=== PATIENT | female | born 1945 | race Caucasian/White ===

== ENCOUNTER → 2017-07-06 | Outpatient (CLI) | payer MEDICARE, MEDICAID | LOC: GMAM 17:23 | PROVIDERS: ATTEND Family Medicine | DX: M81.0 Age-related osteoporosis without current pathological fracture (principal); R63.4 Abnormal weight loss ==

== ENCOUNTER → 2017-07-10 | Outpatient (CLI) | payer MEDICARE, MEDICAID ==
--- NOTE | 2017-07-11 12:49 | CT ---
EXAM DESCRIPTION: Chest w/o Contrast CLINICAL HISTORY: 72 years, Female, PULMONARY NODULE COMPARISON: None TECHNIQUE: Thin-section noncontrast axial CT images are obtained according to our protocol. Reconstructed MPR images are created and reviewed as well. FINDINGS: Lungs: No consolidating pulmonary infiltrate or groundglass infiltrate. No worrisome pulmonary mass or nodule. Calcified granuloma is in the left lower lobe subpleural region measuring 1 cm. This may be visible on chest x-ray. Another calcified granuloma in the subpleural right upper lobe posterior segment measures 5 mm. Severe emphysematous changes are present bilaterally. Subpleural fibrotic changes are noted with honeycomb fibrosis and usual interstitial pneumonitis pattern. This is usually idiopathic but can be associated with pneumoconioses or connective tissue diseases. No pleural plaques. Shoulder degenerative arthritic changes are mild. Mediastinum: Lymph nodes are normal in size. Normal vascular contours. Heart size is normal with no pericardial effusion. Chest wall/axilla: No mass or adenopathy. Breast tissue appears symmetrical. Lower neck/supraclavicular: No mass or adenopathy. Unremarkable thyroid gland. Upper abdomen: Unremarkable upper abdominal viscera. Coronal and sagittal reformatted images confirm the findings. IMPRESSION: Calcific granulomas in the right upper lobe and left lower lobe. Emphysematous hyperexpansion of lungs. Subpleural honeycomb fibrotic changes bilaterally. This exam was performed according to our departmental dose-optimization program, which includes automated exposure control, adjustment of the mA and/or kV according to patient size and/or use of iterative reconstruction technique. Total DLP equals 227.81 mGycm. Electronically signed by: Jonathan Kline MD 07/11/2017 12:47 PM CDT
--- NOTE | 2017-07-11 13:08 | CT ---
EXAM DESCRIPTION: CT ABDOMEN AND PELVIS WITHOUT AND WITH CONTRAST CLINICAL HISTORY: ABD PAIN COMPARISON: None Available. TECHNIQUE: CT of the abdomen and pelvis are performed prior to and during IV bolus administration of 100 mL of Isovue 300. Oral contrast media is administered as well. FINDINGS: See separate chest CT report. Liver is normal in size and parenchymal appearance on precontrast images. Gallbladder is unremarkable. Spleen, pancreas, and kidneys are negative for focal lesion. The aorta measures 2.9 cm in diameter. See recommendations below for imaging follow-up. Postcontrast images show normal enhancement of the liver, spleen and pancreas. Normal renal cortical enhancement. Normal contrast opacification of upper abdominal vessels. No enhancement of the gallbladder wall. There is no lymphadenopathy, inflammation, or free fluid observed. No bowel dilatation. CT PELVIS: Bladder appears thick walled. Correlate with urinalysis. No intraluminal bladder mass or stone. Distal ureters are normal. Bones appear osteopenic. Degenerative changes in the lower lumbar facets. No inflammation around the cecum or terminal ileum or sigmoid colon. Appendix is not seen and may be surgically absent. After IV contrast, no abnormal enhancement of the bladder wall is seen. There is positive opacification of the pelvic arteries. Coronal and sagittal reformatted images confirm the findings. Old compression fracture T12. Severe disc degeneration in the mid and lower L-spine. 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 IMPRESSION: 2.9 cm abdominal aortic aneurysm. See recommendation for follow-up below (Society for vascular surgery guidelines). AAA Size: Follow-up Recommendation (1): 2.6 - 2.9 cm Every 5 years (2) 3.0 - 3.4 cm Every 3 years 3.5 - 3.9 cm Every 12 months 4.0 - 4.4 cm Every 12 months, vasc consult rec 4.5 - 5.4 cm Every 6 months, vasc consult rec >=5.5 cm Referral to vascular surgeon recommended (1)Based upon the Society for Vascular Surgery Guidelines: J Vasc Surg. 2009 Dec;50(4 Suppl):S2-49 (2)For aortas of max fide of 2.6-2.9 cm that meet criteria for AAA (>= 1.5 x proximal normal segment) This exam was performed according to our departmental dose-optimization program, which includes automated exposure control, adjustment of the mA and/or kV according to patient size and/or use of iterative reconstruction technique. Total DLP = 901.87 mGycm. Electronically signed by: Jonathan Kline MD 07/11/2017 1:06 PM CDT
== END ==
LOC: CT 07:56
PROVIDERS: ATTEND Family Medicine
DX: R91.1 Solitary pulmonary nodule (principal); R10.84 Generalized abdominal pain; I71.4 Abdominal aortic aneurysm, without rupture

== ENCOUNTER → 2017-08-20 | Outpatient (CLI) | payer MEDICARE, MEDICAID | LOC: LAB.O 13:04 | PROVIDERS: ATTEND Internal Medicine | DX: M06.9 Rheumatoid arthritis, unspecified (principal) ==

== ENCOUNTER 2018-01-20 05:36 | Day surgery (SDC) | payer MEDICARE, MEDICAID ==
[2018-01-20] MEDS ORDERED: LACTATED RINGERS 1,000 ML ONE (05:56)
[2018-01-20] MEDS ORDERED: LACTATED RINGERS 1,000 ML BAG IV ONE (06:58)
[2018-01-20] MEDS ORDERED: LIDOCAINE 1% 10 ML VIAL INJ ONE (07:00)
[2018-01-20] MEDS ORDERED: PROPOFOL 200 MG/20 ML VIAL IV ONE (07:00)
[2018-01-20 07:09] VITALS: O2SAT 95
[2018-01-20 07:53] VITALS: BP 97/62; TEMP 96.1
--- NOTE | 2018-01-20 08:33 | OP ---
DATE OF PROCEDURE: 01/20/18 PREPROCEDURE DIAGNOSIS: 1. Unintentional weight loss. POSTPROCEDURE DIAGNOSIS: 1. Erythematous gastropathy. 2. Esophagitis, LA Grade B. 3. Moderate to severe diverticulosis. 4. Lateral spreading polyp at 30 cm. 5. Large internal hemorrhoids. PROCEDURE: 1. Esophagogastroduodenoscopy. 2. Colonoscopy. SURGEON: Stefan Rosa MD COMPLICATIONS: No immediate complications. SEDATION: The patient was sedated via IV propofol by the Anesthesia Department. CONSENT: Prior to the procedure, risks, benefits and alternatives to the therapy were discussed with the patient. The risks included bleeding, infection , perforation and . The patient agreed to the procedure and signed a consent. PREPROCEDURE ANESTHESIA ASSESSMENT: An examination revealed no contraindication to sedation. Airway examination demonstrated a Mallampati class type 2, ASA grade assessment type 2. Throughout the procedure, the patient's blood pressure and additional vital signs were monitored closely. EGD: The patient was placed in the left lateral decubitus position. Bite block was placed in the mouth between the teeth. The Olympus endoscope was introduced through the oropharynx, esophagus and stomach. The second portion of the duodenum was reached. The scope was retracted and the mucosa visualized. The entirety of the exam was performed under direct visualization. FINDINGS: 1. Mild to moderate esophagitis was seen at the GE junction, LA Grade B. Biopsied with cold forceps. 2. Erythematous gastropathy was seen diffusely in the gastric antrum, biopsied. Otherwise, the stomach was normal. 3. The entirety of the duodenum was normal. COLONOSCOPY: The patient was placed in the left lateral decubitus position and a rectal examination was performed. The rectal examination was within normal limits. The Olympus colonoscope was passed in the anus, rectum, traversing the colon to the level of the cecum as identified by the appendiceal orifice. The scope was retracted and the mucosa was visualized. The entirety of the exam was performed with direct visualization. Retroflexion was performed in the rectum. Preparation quality was good. The withdrawal time was greater than 6 minutes. The patient tolerated the procedure well. FINDINGS: 1. Moderate to severe diverticulosis was seen in the sigmoid and descending colon. 2. A medium sized, lateral spreading polyp was seen at 30 cm from the anal verge. The polyp was flat and measured 20 mm. Attempt with lifting with normal saline was appropriate, however, unable to safely resect given lack of rigid snare. 3. Large, non-bleeding internal hemorrhoids were seen in retroflexion. 4. Otherwise, the entirety of the colonic mucosa was unremarkable. RECOMMENDATIONS: 1. Return the patient home. 2. Resume previous diet. 3. Repeat colonoscopy at appointment to be scheduled for endoscopic mucosal resection of lateral spreading lesion. 4. Start omeprazole 40 mg p.o. daily for the following 8 weeks. 5. Followup pathology results. 6. Return to my office in the subsequent 2 weeks. 7. Findings were discussed with the patient. 8. Avoid NSAIDs. #[id number] [facility]
== END 2018-01-20 08:24 | disposition home or self-care (01) ==
LOC: AMB 05:36
PROVIDERS: ATTEND Internal Medicine Gastroenterology
DX: R63.4 Abnormal weight loss (principal); K63.5 Polyp of colon; K29.50 Unspecified chronic gastritis without bleeding; K20.9 Esophagitis, unspecified; K57.30 Diverticulosis of large intestine without perforation or abscess without bleeding; K64.8 Other hemorrhoids; I25.10 Atherosclerotic heart disease of native coronary artery without angina pectoris; E78.5 Hyperlipidemia, unspecified; J44.9 Chronic obstructive pulmonary disease, unspecified; Z79.82 Long term (current) use of aspirin; Z79.899 Other long term (current) drug therapy; Z87.891 Personal history of nicotine dependence
CPT/HCPCS: 00813; 43239; 45380; 88305; 88342; J3490; J7120

== ENCOUNTER 2018-08-24 17:49 | Inpatient (IN) | payer MEDICARE, MEDICAID ==
--- NOTE | 2018-08-24 17:50 | HP ---
SUPERVISING PHYSICIAN: Jeyson Alas M.D. CHIEF COMPLAINT: Worsening shortness of breath and cough. HISTORY OF PRESENT ILLNESS: Ms. Apodaca is a 73 year-old female patient that presented to Dr. Patterson's office today complaining of shortness of breath. She reports that she had been seen in the walk-in clinic in [place] over 3 weeks previously for a sore throat at which time she was treated with some Doxycycline and given a steroid shot. She then had a 2 week followup visit with Dr. Patterson and it was noted that she was not having any improvement. At that time, Dr. Patterson started her on a Z-Michael, gave her a steroid injection and a Medrol Dosepak. She reported back for followup today and was notably worse showing O2 saturations on room air at 87% in the clinic, and she is not O2 dependent. The patient also notes that she has had a weight loss over the last year of over almost 65 pounds and in the last week has lost a little over 5 pounds. She notes that her last bowel movement was 3 days previously and she does have issues with chronic constipation. Dr. Patterson requested that the patient now be admitted directly to the hospital for failure to respond to outpatient treatment measures for exacerbation of chronic obstructive pulmonary disease and worsening hypoxia. Ms. Parish is now going to be admitted for concerns for community acquired pneumonia secondary to exacerbation of COPD with hypoxia. She was admitted in stable condition. PAST MEDICAL HISTORY: 1. Rheumatoid arthritis. 2. Abdominal aortic aneurysm followed by Dr. Patterson. 3. Chronic obstructive pulmonary disease with emphysema. 4. Pulmonary fibrosis. 5. Pulmonary nodule on the right lung followed by Dr. Patterson. 6. Chronic constipation. 7. Large polyp in the colon on previous colonoscopy noted in February 2018 followed by GI specialty. PAST SURGICAL HISTORY: 1. Hysterectomy in 1980. 2. Total left knee in 2008. 3. Tonsillectomy and adenoidectomy as a child. 4. Bilateral cataracts. 5. Appendectomy. HOME MEDICATIONS: 1. Duloxetine 60 mg daily. 2. Aspirin 81 mg daily. 3. Zocor 20 mg at bedtime. 4. Methotrexate 2.5 mg daily. 5. [place] 7.5/325 one tablet b.i.d. p.r.n. 6. Folic acid 1 mg daily. 7. Aricept 15 mcg subcue weekly. ALLERGIES: PENICILLIN. FAMILY HISTORY: Father in his 50s secondary to complications from emphysema. Mom in the last 80s due to pancreatic cancer. She has 1 sister who has lung cancer and she has 1 sister that just recently passed at age 82 and had heart problems. SOCIAL HISTORY: Ms. Apodaca is and her currently is in a rehab facility, residential home in [place] status post [id number] amputation. She does have a lengthy history of smoking 1/2 pack to 3/4 pack a day for well over 40 years, but quit 2 years previously. She is a retired surgical nurse. She denies any illicit drug use. REVIEW OF SYSTEMS: CONSTITUTIONAL: Positive for general malaise, unintentional weight loss of well over 65 pounds in the last year and 5 within the last week. Negative for any reported fevers or chills. HEENT: Negative for ear aches, headaches, current recent sore throat, nasal congestion, neck pain. RESPIRATORY: As noted in History of Present Illness, worsening shortness of breath with a productive cough without significant improvement in the last 3 weeks with some acute worsening in the last 24 hours. CARDIOVASCULAR: Denies any chest pains, palpitations, syncopal episodes. GASTROINTESTINAL: Negative for any abdominal pains but positive for chronic constipation. Last bowel movement 3 days previously. Denies any diarrhea, nausea or vomiting. GENITOURINARY: Denies any dysuria, hematuria or polyuria. MUSCULOSKELETAL: Positive for diffuse joint pain secondary to RA with the patient on chronic immunotherapy medications. NEUROLOGIC: Denies any headaches, dizziness, syncopal episodes, ataxia, seizures. SKIN: No evidence of any lesions, rashes or moles. HEMATOLOGIC: Negative for any unexplained bleeding, uncontrolled bleeding, bruising. PHYSICAL EXAMINATION: VITAL SIGNS: In the clinic, she was showing temperature 96.4, pulse 74, blood pressure 106/67, saturations were 87% on room air improving to the low 90s with oxygen therapy. Weight 53.7 kg. GENERAL: The patient is resting comfortably. Appears to be in no acute distress. She does look tired and frail and is thin in appearance. HEENT: Tympanic membranes were clear bilaterally. Oropharynx was pink and moist without any lesions. NECK: Supple, non-tender. Full range of motion. No jugular venous distention. CHEST: Lung sounds were diminished throughout with some very faint inspiratory and expiratory wheezing and rhonchi heard which was more prominent in the upper apices. No rales. ABDOMEN: Soft, non-tender. Positive bowel sounds. EXTREMITIES: Without any clubbing, cyanosis or edema. There was notable arthritic deformities to the hands, chronic in nature. SKIN: Warm, pink and dry. LABORATORY: CBC shows white count 8,300, hemoglobin 14, hematocrit 41.0, platelet count 200,000. Differential shows to be currently without a left shift. Chemistries show normal electrolytes with BUN 17, creatinine 0.83. Lactic acid was 1.0, magnesium 2.0, calcium 8.6. Liver functions are all within normal limits. Urinalysis was pending. MICROBIOLOGY: Sputum culture is pending. Blood culture is pending. RADIOLOGY: Chest x-ray on admission to the floor, 2 view chest, per radiology interpretation shows emphysematous and fibrotic changes. No acute process noted within the lungs. ASSESSMENT: 1. Acute exacerbation of chronic obstructive pulmonary disease having failed to respond to outpatient treatment measures with the patient having multiple risk factors and co-morbidities including immunosuppressive therapy for treatment of rheumatoid arthritis. 2. Chronic obstructive pulmonary disease with pulmonary fibrosis contributing to exacerbation in #1. 3. Rheumatoid arthritis on multiple immunotherapy medications. 4. History of abdominal aortic aneurysm being followed by Dr. Patterson. 5. History of pulmonary nodule in the right lung followed by Dr. Patterson. 6. Chronic constipation, uncertain etiology. 7. Unexplained weight loss with the patient being followed by Dr. Patterson in the outpatient setting with the patient having a history of polyps noted in last colonoscopy, awaiting further procedures. PLAN: Ms. Apodaca is going to be admitted directly from the clinic for exacerbation of COPD. Given that she has significant lung fibrosis and a history of rheumatoid arthritis in which she is being treated with multiple immunomodulating medications, she certainly is at high risk for developing pneumonia, therefore will start her on antibiotics with Rocephin and azithromycin. I will also start her on some Solu-Medrol as she was having some wheezing and she has pulmonary fibrosis. Initially will do 80 mg loading dose. This will be followed-up with 40 every 6 hours for 3 doses and reevaluate anticipating transition to oral prednisone. Will resume her home medications once those have been updated and verified. Will follow culture results of sputum and blood cultures, and treat as needed. She does have home health currently which is [facility]. Will put her on DVT prophylaxis per protocol. She will have aggressive bronchial hygiene with q.i.d. DuoNeb treatments and chest percussive therapy. Will follow her labs as needed. Again will anticipate length of stay to be 2 to 3 days. Once she is able to transition to outpatient management, given her current circumstances with her just having a recent [id number] amputation and in a rehab facility in [place], I did discuss with the patient that given that she is weak we need to consider possibly admission to a similar situation. She has voiced that she would be willing to be admitted as an inpatient to the same facility as her is at in [place] for rehabilitation. I will get a social consultation with Kellee to further followup on the patient's needs. Until she can transition to outpatient management will continue to follow and treat as needed. #[id number] [facility]
[2018-08-24] MEDS ORDERED: ALBUTEROL SULFATE 2.5 MG/3 ML VIAL NEB PRN (17:57)
[2018-08-24] MEDS ORDERED: ACETAMINOPHEN 325 MG TAB PO PRN (17:57)
[2018-08-24] MEDS ORDERED: SODIUM CHLORIDE 0.9% (FLUSH) 10 ML SYG IV PRN (17:57)
[2018-08-24] MEDS ORDERED: ONDANSETRON INJ 4 MG/2 ML VIAL IV PRN (17:57)
[2018-08-24] MEDS ORDERED: IBUPROFEN 400 MG TAB PO PRN (17:57)
[2018-08-24] MEDS ORDERED: IV SET AND CAP CHANGE INJ INJ SCH (18:00)
[2018-08-24] MEDS ORDERED: SODIUM CHLORIDE 0.9% 1000ML 1,000 ML IVS ONE (18:14)
[2018-08-24] MEDS: IPRATROPIUM/ALBUTEROL 3 ML VIAL INH SCH ×2 (18:14→20:15)
--- NOTE | 2018-08-24 18:35 | RAD ---
EXAM:Chest,2 Views CLINICAL INDICATION: COPD COMPARISON: 09/03/2011 FINDINGS:Two views of the chest were obtained. The heart size is normal. The pulmonary vascularity is unremarkable. The lungs are somewhat hyperexpanded and emphysematous. Additionally, there is prominence of the fine interstitial markings in both lung bases. No focal infiltrates are seen. There is no pneumothorax or pleural effusion. The lungs are otherwise clear. IMPRESSION: Emphysematous and fibrotic changes. No acute process in the chest. Electronically signed by: Yong Wang MD 08/24/2018 6:33 PM CDT
[2018-08-24] MEDS ORDERED: methylPREDNISolone SODIUM SUC 125 MG/2 ML VIAL IV ONE (19:00)
[2018-08-24] MEDS: levoFLOXacin 750MG IV 750 MG in PREMIX BAG 1 BAG IVPB SCH (19:39)
[2018-08-24] MEDS: KCL 20MEQ/0.45% NS 1,000 ML IVS PRN (19:39)
[2018-08-24] MEDS: ENOXAPARIN SODIUM 40 MG/0.4 ML SYG SUBCU SCH (19:40)
[2018-08-24] MEDS ORDERED: HYDROcodone 7.5MG/APAP 325MG 1 EA TAB PO PRN (20:01)
[2018-08-24] MEDS: SIMVASTATIN 20 MG TAB PO SCH (20:31)
[2018-08-24] MEDS: SODIUM CHLORIDE 0.9% (FLUSH) 10 ML SYG IV SCH (20:38)
[2018-08-24] MEDS ORDERED: diphenhydrAMINE HCL 25 MG CAP PO ONE (21:08)
[2018-08-25] MEDS: methylPREDNISolone SODIUM SUC 40 MG/ML VIAL IV SCH ×3 (01:05→12:40)
--- NOTE | 2018-08-25 07:10 | RAD ---
EXAM: Two view chest. INDICATION: Pneumonia. COMPARISON: Chest x-ray: 08/24/2018. FINDINGS: The lungs again demonstrate chronic interstitial opacities with no focal consolidation. The lungs appear hyperexpanded. The heart is normal in size. There is no pneumothorax or pleural effusion. The bones are demineralized. IMPRESSION: No significant change compared to the prior exam Electronically signed by: Bill Fox MD 08/25/2018 7:07 AM CDT Workstation: [id number]
[2018-08-25] MEDS: IPRATROPIUM/ALBUTEROL 3 ML VIAL INH SCH (08:54)
[2018-08-25] MEDS ORDERED: ASPIRIN (ENTERIC COATED) 81 MG TAB PO ONE (08:57)
[2018-08-25] MEDS ORDERED: DULoxetine HCL 30 MG CAP PO ONE (08:57)
[2018-08-25] MEDS ORDERED: NON-FORMULARY MEDICATION 1 EA MIS (Duloxetine Hcl [Duloxetine Hcl] 60 MG) PO SCH (09:00)
[2018-08-25] MEDS: FOLIC ACID 1 MG TAB PO SCH (09:09)
[2018-08-25] MEDS: KCL 20MEQ/0.45% NS 1,000 ML IVS PRN (09:09)
[2018-08-25] MEDS: SODIUM CHLORIDE 0.9% (FLUSH) 10 ML SYG IV SCH ×2 (09:12→20:59)
[2018-08-25] MEDS: ASPIRIN (CHEWABLE) 81 MG TAB PO SCH (09:14)
[2018-08-25] MEDS: IPRATROPIUM/ALBUTEROL 3 ML VIAL NEB SCH ×3 (13:00→20:28)
--- NOTE | 2018-08-25 14:18 | PN ---
SUPERVISING PHYSICIAN: Jeyson Alas MD DATE: 08/25/18 SUBJECTIVE: The patient reports that her breathing is a little easier today. After getting steroids, she has had some notable improvement, however, she has not been able to sleep due to the steroids. She has not had any chest pains, palpitations, diarrhea. She does still have a little issue with constipation. Otherwise, no further complaints. OBJECTIVE: VITAL SIGNS: Temperature 98.4. Pulse 86. Blood pressure 103/60. Respiratory rate 16. Saturation 95% on room air. Weight 55.4 kg. GENERAL: The patient is resting just having eaten breakfast sitting in the bedside chair. She is in no acute distress and is alert. CHEST: Lung sounds have improved aeration today, but still diminished towards the bases with just a slight inspiratory wheeze continued bilaterally. HEART: Regular rate and rhythm. ABDOMEN: Soft, nontender. Positive bowel sounds. EXTREMITIES: No edema. NEUROLOGIC: Alert and oriented times three. LABORATORY: White count 3,700, hemoglobin 12, hematocrit 36.5, platelet count 158,000. Differential without a left shift. Chemistries show normal electrolytes. BUN 15, creatinine 0.86, calcium 8.3. Urinalysis last night was within normal limits. MICROBIOLOGY: Blood cultures pending. Sputum culture pending collection. RADIOLOGY: Chest x-ray this morning per radiologic interpretation shows no significant change compared to previous exam. ASSESSMENT: 1. Acute exacerbation of chronic obstructive pulmonary disease having failed to respond to outpatient treatment measures with the patient having multiple risk factors and co-morbidities including immunosuppressive therapy for treatment of rheumatoid arthritis,showing improvement with systemic corticosteroids. 2. Chronic obstructive pulmonary disease with pulmonary fibrosis contributing to exacerbation in #1, improving with corticosteroids and aggressive pulmonary hygiene. 3. Rheumatoid arthritis on multiple immunotherapy medications. 4. History of abdominal aortic aneurysm being followed by Dr. Patterson. 5. History of pulmonary nodule in the right lung followed by Dr. Patterson. 6. Chronic constipation, uncertain etiology. 7. Unexplained weight loss with the patient being followed by Dr. Patterson in the outpatient setting with the patient having a history of polyps noted in last colonoscopy, awaiting further procedures. PLAN: We will continue with current plan of care with Levaquin given that she does have high risk factors for immunocompromise due to her rheumatoid and rheumatoid medications although right now, it appears that her chronic obstructive pulmonary disease is an exacerbation without any signs of infection. We will continue with Solu-Medrol for continuation of 4 doses since admission and then transition to p.o. prednisone 40 mg in the morning. We will go ahead and do an ambulation study tomorrow with anticipation of probably discharging. She does have her discharging on Thursday from his rehab facility going home and she needs to be home to assist him. We will go ahead and saline lock her as she is taking adequate oral hydration. She remains on deep venous thrombosis prophylaxis. We will hold off on any repeat laboratory as it is fairly stable. We will anticipate hopefully discharging tomorrow on oral prednisone and continued antibiotics. Until then, we will continue to monitor and treat as needed. #[id number]; [facility][id number] [facility]
[2018-08-25] MEDS: levoFLOXacin 750MG IV 750 MG in PREMIX BAG 1 BAG IVPB SCH (18:05)
[2018-08-25] MEDS: ENOXAPARIN SODIUM 40 MG/0.4 ML SYG SUBCU SCH (19:22)
[2018-08-25] MEDS: TEMAZEPAM 15 MG CAP PO PRN (20:59)
[2018-08-25] MEDS: SIMVASTATIN 20 MG TAB PO SCH (20:59)
[2018-08-26] MEDS: IPRATROPIUM/ALBUTEROL 3 ML VIAL NEB SCH ×4 (07:25→20:18)
[2018-08-26] MEDS: FOLIC ACID 1 MG TAB PO SCH (08:55)
[2018-08-26] MEDS: DULoxetine HCL 30 MG CAP PO SCH (08:55)
[2018-08-26] MEDS: predniSONE 20 MG TAB PO SCH (08:55)
[2018-08-26] MEDS: SODIUM CHLORIDE 0.9% (FLUSH) 10 ML SYG IV SCH ×2 (08:55→20:42)
[2018-08-26] MEDS: ASPIRIN (CHEWABLE) 81 MG TAB PO SCH (08:55)
--- NOTE | 2018-08-26 13:22 | PN ---
SUPERVISING PHYSICIAN: Jeyson Alas MD DATE: 08/26/18 SUBJECTIVE: The patient today notes she is not feeling as well as she was yesterday. We did taper her steroids down to oral. She notes she is shaky and weak. Her breathing seems to be about the same, maybe a little improved, but the patient is worried about her strength. She has had no chest pains, palpitations or other complications. OBJECTIVE: VITAL SIGNS: Temperature 97.9. Pulse 70. Blood pressure 99/60. Respiratory rate 16. Saturation 95% on room air. Weight 56.4 kg. GENERAL: The patient is resting in bed comfortably, talking to friends. 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 CHEST: Lung sounds today are fairly clear, just diminished towards the bases. There is just a very faint wheeze heard in the upper apices once again. HEART: Regular rate and rhythm. ABDOMEN: Soft, nontender. Positive bowel sounds. EXTREMITIES: No edema. NEUROLOGIC: Alert and oriented times three. LABORATORY: No repeat laboratories studies or x-rays. ASSESSMENT: 1. Acute exacerbation of chronic obstructive pulmonary disease having failed to respond to outpatient treatment measures with the patient having multiple risk factors and co-morbidities including immunosuppressive therapy for treatment of rheumatoid arthritis, showing slow improvement with systemic corticosteroids. 2. Chronic obstructive pulmonary disease with pulmonary fibrosis contributing to exacerbation in #1, with the patient showing slow clinical progression with need for continued more aggressive management. 3. Rheumatoid arthritis on multiple immunotherapy medications. 4. History of abdominal aortic aneurysm being followed by Dr. Patterson. 5. History of pulmonary nodule in the right lung followed by Dr. Patterson. 6. Chronic constipation, uncertain etiology. 7. Unexplained weight loss with the patient being followed by Dr. Patterson in the outpatient setting with the patient having a history of polyps noted in last colonoscopy, awaiting further procedures. PLAN: I was hoping to actually send the patient home today, however, she seems to have had a little bit of a set back overnight. I am not sure if it is the steroids, going to p.o. She is not short of breath, but she certainly is a lot weaker than she was yesterday. We did discuss getting up and ambulating and working with physical therapy. She has been transitioned to oral prednisone 40 mg daily. She remains on DVT prophylaxis. She is saline locked and is taking adequate oral hydration. We will hopefully be able to discharge tomorrow. Until then, we will continue with current treatment plan. Until she can transition to outpatient management, we will continue to monitor and treat as needed. [id number] [facility]
[2018-08-26] MEDS: levoFLOXacin 750MG IV 750 MG in PREMIX BAG 1 BAG IVPB SCH (17:32)
[2018-08-26] MEDS: ENOXAPARIN SODIUM 40 MG/0.4 ML SYG SUBCU SCH (17:37)
[2018-08-26] MEDS: SIMVASTATIN 20 MG TAB PO SCH (20:43)
[2018-08-26] MEDS: TEMAZEPAM 15 MG CAP PO PRN (22:06)
[2018-08-27 06:13] VITALS: BP 94/56; TEMP 97.8
[2018-08-27] MEDS: SODIUM CHLORIDE 0.9% (FLUSH) 10 ML SYG IV SCH (09:28)
[2018-08-27] MEDS: predniSONE 20 MG TAB PO SCH (09:29)
[2018-08-27] MEDS: DULoxetine HCL 30 MG CAP PO SCH (09:29)
[2018-08-27] MEDS: ASPIRIN (CHEWABLE) 81 MG TAB PO SCH (09:29)
[2018-08-27] MEDS: FOLIC ACID 1 MG TAB PO SCH (09:29)
[2018-08-27] MEDS: IPRATROPIUM/ALBUTEROL 3 ML VIAL NEB SCH (09:58)
[2018-08-27 09:59] VITALS: O2SAT 98
--- NOTE | 2018-08-27 13:31 | DS ---
SUPERVISING PHYSICIAN: Jeyson Alas MD ADMISSION DIAGNOSIS: 1. Chronic obstructive pulmonary disease exacerbation, failed outpatient therapy. 2. Rheumatoid arthritis on immunosuppressant therapy. 3. History of abdominal aortic aneurysm. 4. History of pulmonary nodule. 5. Chronic constipation. 6. Unexplained weight loss. DISCHARGE DIAGNOSIS: 1. Chronic obstructive pulmonary disease exacerbation, failed outpatient therapy. 2. Rheumatoid arthritis on immunosuppressant therapy. 3. History of abdominal aortic aneurysm. 4. History of pulmonary nodule. 5. Chronic constipation. 6. Unexplained weight loss. HOSPITAL COURSE: Ms. Apodaca is a 73-year-old female who went to Dr. Patterson's office on the day of admission with shortness of breath. She was seen at a walk-in clinic 3 weeks previously in [place] for a sore throat and was treated with doxycycline and given a steroid shot. She saw Dr. Patterson for the followup appointment and was placed on a Z-Michael as well as a steroid injection and Medrol Dosepak. On her followup appointment, she had not improved and O2 saturations were in the 80s. For that reason, she was referred for admission. Initially, she was hypoxic, but with treatment with nebulizers and steroids as well as antibiotics, she improved. Over the course of the 3 days, her oxygenation issues resolved. She denies any significant shortness of breath. Today, she feels like she can go home. Therefore, I will send her home on titrating doses of prednisone as well as Levaquin. She has a followup appointment with Dr. Patterson on 09/01/18. This is reflected in her discharge paperwork. Her diet will not change. Activity is as tolerated. #[id number] [facility]
== END 2018-08-27 09:55 | disposition home health service (06) | DRG 191 ==
LOC: MS 17:49
PROVIDERS: ADMIT Nurse Practitioner Family; ATTEND Nurse Practitioner Family
DX: J43.9 Emphysema, unspecified (principal); Z68.1 Body mass index [BMI] 19.9 or less, adult; R63.4 Abnormal weight loss; R09.02 Hypoxemia; M06.9 Rheumatoid arthritis, unspecified; K59.09 Other constipation; I71.4 Abdominal aortic aneurysm, without rupture; R91.8 Other nonspecific abnormal finding of lung field; J84.10 Pulmonary fibrosis, unspecified; Z96.652 Presence of left artificial knee joint; Z79.82 Long term (current) use of aspirin; Z79.891 Long term (current) use of opiate analgesic; Z79.899 Other long term (current) drug therapy; Z88.0 Allergy status to penicillin; Z87.891 Personal history of nicotine dependence; Z80.1 Family history of malignant neoplasm of trachea, bronchus and lung; Z80.0 Family history of malignant neoplasm of digestive organs

== ENCOUNTER → 2018-09-03 | Outpatient (CLI) | payer MEDICARE, MEDICAID ==
--- NOTE | 2018-09-06 09:19 | CT ---
EXAM DESCRIPTION: Abdoment/Pelvis w/o Contrast (accession [id number]), Chest w/o Contrast (accession [id number]) CLINICAL HISTORY: 73 years Female, ABDOMINAL AORTIC ANEURSM COMPARISON: CT chest, abdomen, and pelvis 07/10/2017. TECHNIQUE: CT images through the chest, abdomen, and pelvis without IV contrast. Multiplanar reformations were provided. This exam was performed according to our departmental dose-optimization program, which includes automated exposure control, adjustment of the mA and/or kV according to patient size and/or use of iterative reconstruction technique. CT CHEST FINDINGS: Heart and mediastinum: Heart is normal size. No pericardial effusion. Esophagus is unremarkable. Moderate calcified atherosclerosis. Moderate calcification in the left anterior descending coronary artery. No mediastinal lymphadenopathy. Evaluation for hilar lymphadenopathy limited without intravenous contrast but no perihilar fullness is appreciated. Thyroid Gland: Normal appearance of the thyroid gland. Lungs: Emphysematous changes bilaterally. Unchanged calcified granulomas. Airways: No filling defects or bronchiectasis. Pleura: No effusion or pneumothorax. Musculoskeletal and Soft Tissues: No acute fracture. No aggressive appearing osseous lesion. Soft tissues unremarkable with no axillary lymphadenopathy. CT ABDOMEN FINDINGS: Liver: Normal. Gallbladder and biliary: Normal. Pancreas: Normal. Spleen: Normal. Kidneys and adrenal glands: Normal. GI tract: The stomach and small bowel are normal. Peritoneal cavity: No ascites or free air. Retroperitoneum and lymph nodes: Normal. Vascular: Severe calcified atherosclerosis. Unchanged 2.9 x 2.5 cm aneurysmal dilatation of the infrarenal abdominal aorta. Unable to evaluate for hemorrhage or dissection limited without intravenous contrast. Musculoskeletal and soft tissues: No acute fracture or aggressive appearing osseous lesion. Soft tissues are unremarkable. CT PELVIS FINDINGS: GI tract: There is moderate Appendix is not definitively identified, although no pericecal inflammation or edema is present to suggest acute appendicitis at its expected location. Moderate stool throughout the colon. Urinary bladder: Moderately distended Uterus and adnexa: Uterus is absent. IMPRESSION: 1. No acute abnormality of the chest, abdomen or pelvis. 2. No suspicious pulmonary nodule. 3. Unchanged 2.9 cm infrarenal abdominal aortic aneurysm. AAA Size: Follow-up Recommendation : 2.6-2.9 cm Every 5 years 3.0-3.4 cm Every 3 years 3.5-3.9 cm Every 1 year 4.0-4.4 cm Every 1 year, vascular consultation recommended 4.5-5.4 cm Every 6 months, vascular consultation recommended >5.5 cm Vascular surgery consultation recommended 1. J Vasc Surg. 2009 Dec;50(4 Suppl):S2-49 2. For aortas with maximum diameter of 2.6-2.9 cm meeting the criteria for AAA (>50% of proximal normal segment) Electronically signed by: Josue Dominguez MD 09/06/2018 9:16 AM CDT
== END ==
LOC: CT 08:30
PROVIDERS: ATTEND Family Medicine
DX: I71.4 Abdominal aortic aneurysm, without rupture (principal); R91.1 Solitary pulmonary nodule

== ENCOUNTER → 2018-09-20 | Outpatient (CLI) | payer MEDICARE, MEDICAID | LOC: BFHH 14:15 | PROVIDERS: ATTEND Family Medicine | DX: N39.0 Urinary tract infection, site not specified (principal) ==

== ENCOUNTER → 2018-12-14 | Outpatient (CLI) | payer MEDICARE, MEDICAID ==
--- NOTE | 2018-12-15 14:21 | MRI ---
EXAM DESCRIPTION: Lumbar Spine w/o Contrast : Magnetic Resonance Imaging. CLINICAL HISTORY: SPINAL STENOSIS LUMBAR REGION WITH NEUROGENIC CLAUDICATION COMPARISON: Abdominal pelvic CT scan August 2018. TECHNIQUE: Multiplanar, multiple standard sequences, non contrast MRI, lumbar spine. FINDINGS: L5-S1: The disc is well visualized on axial T2 series 501, image 3. Disc desiccation and moderate disc space loss. Prior partial right laminectomy. Right posterior ligament partially removed. Hypertrophic arthrosis left facet and ligament thickening. Grade 1 retrolisthesis 2 mm. Posterior midline bulge with hyperintense T2 weighted annular fissure in the bulging disc. AP canal diameter 11 mm. Moderate right foraminal narrowing with bulging disc and spur abutting the right L5 nerve. Moderate narrowing left foramen. L4-L5: Disc desiccation and moderate to severe disc space loss. Partial left laminectomy and left facetectomy at L5. AP canal diameter 11 mm. Disc osteophyte encroachment on the bilateral foramina with moderate narrowing, more on the left. Mild right hypertrophic facet arthrosis and ligament thickening. Mild narrowing of the left subarticular recess. L3-L4: Diffuse moderate disc space loss and endplate reactive changes relatively symmetric. Anterior bulge and endplate ridging. Posterior broad-based disc osteophyte bulge into the canal with 3 mm grade 1 retrolisthesis. Partial right laminectomy and facetectomy. Minimal soft tissue edema posterior to the partially resected facet. Spur encroaching on the left subarticular recess which is stenotic with compromised descending left L4 nerve. Left paracentral 5 mm AP canal diameter. Moderate narrowing bilateral foramina. L2-L3: Disc desiccation with disc space maintained. Tiny posterior midline bulge. Bilateral moderate facet hypertrophic arthrosis and ligament thickening. AP canal diameter 9 mm. Right foramen is patent. Moderate narrowing of the left foramen. L1-L2: Disc space maintained with disc desiccation no significant bulging. Moderate hypertrophic facet arthrosis and ligament thickening bilaterally. AP canal diameter 11 mm. Moderate right foraminal narrowing and minimal left foraminal stenosis. Conus terminates just above the disc space. T12-L1: Minimal depression of the superior T12 endplate with minimal marrow edema. Retropulsion 3 mm. Abutting the cord. Elevation of the inferior T12 endplate but no marrow edema. Bilateral hypertrophic facet arthrosis and thickening of the ligaments more right than left. Edema also in the inferior and superior facets of the left joint. No significant disc bulging. AP canal diameter 10 mm. Right neural foraminal stenosis and mild narrowing left foramen. Mild upper lumbar dextroscoliosis. Paravertebral soft tissues unremarkable. Distal cord normal signal and caliber. Otherwise normal marrow signal in the remaining vertebral bodies and the posterior elements. Vertebral bodies are not compressed at any level. IMPRESSION: 1. Multiple levels of postoperative changes, multiple levels of decreased disc space and disc desiccation with spondylosis, multiple levels of hypertrophic facet arthrosis and thickened posterior ligaments. 2. Recent mild compression of the superior L1 endplate. Edema in the inferior superior facets of the left T12-L1 joint which could be related to trauma or arthrosis. Multifactorial borderline mild central canal stenosis. Right neural foraminal stenosis. 3. Annular fissure in the posterior midline L5-S1 disc bulge. Moderate canal narrowing. Previous partial right laminectomy. 4. Moderate to severe disc space loss and disc desiccation at L4-L5. Partial left laminectomy and left facetectomy. Moderate canal narrowing. Moderate foraminal narrowing. 5. Minimal posterior L2-L3 disc bulge, hypertrophic bilateral facets and ligaments, and multifactorial mild central canal stenosis. 6. Posterior broad-based L3-L4 disc osteophyte bulge and retrolisthesis. Partial right laminectomy and facetectomy with edema posterior to the partially resected facet. Large hypertrophic spur from the left facet encroaching on the canal with left paracentral severe canal stenosis and left subarticular recess stenosis with compromise descending left L4 nerve. Electronically signed by: Joshua Villagomez MD 12/15/2018 2:20 PM CDT
== END ==
LOC: MRI 10:00
PROVIDERS: ATTEND Family Medicine
DX: M48.062 Spinal stenosis, lumbar region with neurogenic claudication (principal); M51.36 Other intervertebral disc degeneration, lumbar region; M47.896 Other spondylosis, lumbar region; M51.86 Other intervertebral disc disorders, lumbar region; M25.78 Osteophyte, vertebrae; Z98.890 Other specified postprocedural states

== ENCOUNTER → 2018-12-17 | Outpatient (CLI) | payer MEDICARE, MEDICAID ==
--- NOTE | 2018-12-20 08:42 | MRI ---
EXAM DESCRIPTION: Thoracic Spine w/o Contrast: Magnetic Resonance Imaging. CLINICAL HISTORY: pain in thoracic spine. Mid back pain that radiates to the left side. COMPARISON: Thoracic spine radiographs 12/09/2018. CTA chest 12/18/2018. MRI scan lumbar spine 12/14/2018 TECHNIQUE: Multiplanar, multiple standard sequences, non contrast MRI, thoracic spine. FINDINGS: Multiple levels of disc desiccation and disc space loss and spondylosis. Anterior disc space loss at T4-T5 with posterior left paracentral disc protrusion impressing on the cord with mild bilateral foraminal narrowing. Near left paracentral canal stenosis. T8-T9 disc desiccation with disc space loss and left side endplate reactive changes. Bulge of the disc posteriorly is abutting the exiting left T8 nerve. Moderate canal and moderate left foraminal narrowing. Right foramen patent. Bilateral hypertrophic facets T9-10, T10-11, and T11-12 with bilateral foraminal stenosis. Disc desiccation and posterior disc bulge at these levels with canal nearly stenotic. Marrow edema in the right T11 pedicle, hyperintense on T2 and inversion recovery sequences, most likely stress injury. Superior elevation of the inferior T12 endplate which may represent a prior compression injury. No marrow edema in the T12 vertebral body or pedicles. Expansion of the T12-L1 disc. Depression of the L1 superior endplate with minimal marrow edema in the endplate but not involving the pedicles. 4 mm retropulsion of the endplate abutting the cord. This was also seen on the recent MRI scan of the lumbar spine. Right T12-L1 foraminal stenosis Disc desiccation T6-T7 and T7-T8 with minimal posterior bulge. Moderate canal narrowing at these levels. Minimal narrowing of the left foramina. Anterior endplate ankylosis from T4 to T9. Upper level discs with normal signal. Disc spaces are preserved. Canal and foramina are patent. No scoliosis. Facet joints are unremarkable. Conus terminates at L1. Cord with normal signal, no compression. Paravertebral soft tissues are unremarkable. Normal marrow signal in the remaining vertebral bodies and the posterior elements. No acute thoracic vertebral bodies compression at any level. IMPRESSION: 1. Left posterior paracentral protrusion T4-T5 causing near stenosis. Possible compromise left T4 nerve root. Left posterior T8-T9 disc bulge with spondylosis, abutting the exiting left T8 nerve root. 2. Bilateral hypertrophic facets T9-10, T10-11, and T11-12 with bilateral foraminal stenosis. Significant canal narrowing. Marrow edema in the right T11 pedicle may be due to stress injury with no fracture line seen. 3. Compression of the superior L1 endplate as well seen on prior MRI scan. Right T12-L1 foraminal stenosis. Old compression injury with elevation of, but no marrow edema in the inferior T12 endplate. 4. Disc desiccation T6-T7 and T7-T8 with minimal posterior bulge Electronically signed by: Joshua Villagomez MD 12/20/2018 8:41 AM CDT
== END ==
LOC: MRI 10:00
PROVIDERS: ATTEND Family Medicine
DX: M51.24 Other intervertebral disc displacement, thoracic region (principal); M47.894 Other spondylosis, thoracic region; M51.34 Other intervertebral disc degeneration, thoracic region; M48.04 Spinal stenosis, thoracic region; M48.05 Spinal stenosis, thoracolumbar region; M48.062 Spinal stenosis, lumbar region with neurogenic claudication

== ENCOUNTER 2018-12-18 16:09 | Emergency (ER) | payer MEDICARE, MEDICAID ==
[2018-12-18] MEDS ORDERED: ONDANSETRON INJ 4 MG/2 ML VIAL IV ONE (16:14)
[2018-12-18] MEDS ORDERED: ASPIRIN TABLET 325 MG TAB PO ONE (16:14)
[2018-12-18] MEDS ORDERED: NITROGLYCERIN 0.4 MG 25 EA TAB SL ONE (16:14)
[2018-12-18] MEDS ORDERED: SODIUM CHLORIDE 0.9% (FLUSH) 10 ML SYG IV PRN (16:14)
--- NOTE | 2018-12-18 16:35 | ED.PDOC ---
History of Present Illness - General Chief Complaint: Chest Pain/AL Stated Complaint: Chest pain Time Seen by Provider: 12/18/18 16:14 Source: patient, RN notes reviewed, Vital Signs reviewed, EMS notes reviewed, RN/MD Additional Information: Pt is a 73 yo F with Hx of smoking and COPD coming in with constant substernal chest pain radiating to her back since early this morning. Pain has been constant. She states that the pain worsens when she takes a deep breath. She denies cough but does endorse upper respiratory congestion. She denies any recent leg swelling or leg pain. She deneis any nausea, vomiting, diaphoresis or SOB. She denies any recent sick contacts. Patient denies leg swelling or leg pain. She denies recent travel, recent surgeries, hemoptysis, or hx of cancer. - History of Present Illness Timing/Duration: 7-24 hours Severity/Quality: moderate Location: substernal Chest Pain Radiation: back Activities at Onset: rest Improving Factors: nothing Worsening Factors: other - Deep breath Allergies/Adverse Reactions: Allergies Penicillins Allergy (Severe, Verified 08/24/18 18:05) Hives Home Medications: Ambulatory Orders RX: Aspirin [Aspirin Adult Low Dose] 81 mg PO DAILY 01/19/18 RX: Methotrexate Sodium [Methotrexate] 2.5 mg PO DAILY 01/19/18 Mirabegron [Myrbetriq] 25 mg PO DAILY 12/18/18 predniSONE [PredniSONE] 10 mg PO DAILY 12/18/18 Review of Systems - Review of Systems Constitutional: Denies: chills, fever EENTM: States: nose congestion. Denies: blurred vision Respiratory: Denies: cough, short of breath Cardiology: States: chest pain. Denies: edema, palpitations Gastrointestinal/Abdominal: Denies: abdominal pain, nausea, vomiting Musculoskeletal: Denies: back pain Past Medical History (General) - Patient Medical History Hx Seizures: No Hx Stroke: No Hx Asthma: No Hx of COPD: Yes Hx Congestive Heart Failure: No Hx Pacemaker: No Hx Hypertension: No Hx Diabetes: No Hx MRSA: No - Social History Hx Alcohol Use: No Hx Substance Use: No Hx Physical Abuse: No Hx Emotional Abuse: No Family Medical History - Family History Mother Family History: Unknown Physical Exam - Physical Exam General Appearance: Alert, Comfortable, No apparent distress, Well Developed, Well Groomed, Well Hydrated, Well Nourished Neck: full range of motion, supple, normal inspection Respiratory: chest non-tender, lungs clear, normal breath sounds, no respiratory distress, no accessory muscle use Cardiovascular/Chest: regular rate, rhythm, no edema, no gallop, no JVD, no murmur Peripheral Pulses: radial,right: 2+, radial,left: 2+, dorsalis pedis,right: 2+, dorsalis pedis,left: 2+, posterior tibialis,right: 2+, posterior tibialis,left: 2+ Gastrointestinal/Abdominal: normal bowel sounds, non tender, soft Extremity: no pedal edema, no calf tenderness Progress - Progress Progress: DDx: ACS, PE, Pneumonia, Pleurisy, Aortic Dissection, Esophageal Rupture, Mediastinitis, COPD Exacerbation, Muscle strain, GERD 12/18/18 16:30 Patient evaluated. Orders placed. EKG not significant for ischemic changes. 12/18/18 18:44 Patient feeling better. Discussed CTA findings. Will discharge home as pain has been constant and negative troponin without EKG changes. 12/18/18 21:37 Patient presented for evaluation of chest pain. EKG was not significant for underlying ischemic changes and troponin was found to be negative. Her pain had been constant greater than 6 hours, therefore I would expect a rise in troponin, CK-MB or ischemic changes on EKG. CXR was not significant for focal pneumonia. CMP was not significant for hepatic or biliary derangement. CBC was not significant for anemia or leukcoytosis. Given her chest pain, CTA chest was obtained. This was not significant for a focal pneumonia. She was updated on findings of CTA of chest. Patient denied any complaints and wanted to return home. Patient will be discharged home with plans for outpatient follow-up. - Results/Orders Results/Orders: CTA Chest: FINDINGS: There is no evidence of pulmonary embolism. There are no findings to suggest aortic dissection. There are no enlarged mediastinal or hilar lymph nodes. The visualized portions of the upper abdominal structures are unremarkable. There is mild dependent subsegmental atelectasis in both lung bases. Moderate emphysematous changes are noted in the lungs as well as mild to moderate fibrotic changes. There is a large calcified granuloma in the left lowe r lobe. The lungs are otherwise clear. There is no pneumothorax. IMPRESSION: No evidence of pulmonary embolism. CXR: KRISTA 12/18/18 16:14 IV Care:Saline Lock per Protoc QSHIFT Telemetry .ONCE Sodium Chloride 0.9% (Flush) [Saline Flush Syringe] 10 ml IV PRN PRN EKG Stat Pulse Ox Stat Laboratory Results - last 24 hr 12/18/18 16:33 WBC 7.8 RBC 4.02 L Hgb 13.2 Hct 39.8 MCV 99.1 H MCH 32.8 H MCHC 33.1 RDW 17.3 H Plt Count 194 MPV 8.0 Absolute Neuts (auto) 5.90 Absolute Lymphs (auto) 1.50 Absolute Monos (auto) 0.30 Absolute Eos (auto) 0.00 Absolute Basos (auto) 0.00 Neutrophils % 75.5 Lymphocytes % 19.2 L Monocytes % 4.4 Eosinophils % 0.5 L Basophils % 0.4 PT 9.3 INR 0.93 PTT (SP) 23.2 Sodium 138 Potassium 4.3 Chloride 103 Carbon Dioxide 25 Anion Gap 14.3 BUN 13 Creatinine 0.68 BUN/Creatinine Ratio 19.1 Random Glucose 86 Serum Osmolality 275.1 Calcium 8.7 Magnesium 2.2 Creatine Kinase 18 L CK-MB (CK-2) 0.5 CK-MB (CK-2) % Not Reportable Troponin I < 0.02 B-Natriuretic Peptide 160.0 H CTA Chest: No acute pulmonary embolus CXR: No focal infiltrate - EKG/XRAY/CT EKG: Sinus, no ST T wave changes Departure - Departure Clinical Impression: Chest pain Qualifiers: Chest pain type: chest pain on breathing Qualified Code(s): R07.1 - Chest pain on breathing Disposition: Discharge to Home or Self Care Condition: Good Departure Forms: ED Discharge - Pt. Copy, Patient Portal Self Enrollment Instructions: DI for Chest Pain Diet: resume usual diet Activity: increase activity as tolerated Referrals: Ritchie Pattesron MD [Primary Care Provider] - 1-2 Weeks Home Medications: Ambulatory Orders RX: Aspirin [Aspirin Adult Low Dose] 81 mg PO DAILY 01/19/18 RX: Methotrexate Sodium [Methotrexate] 2.5 mg PO DAILY 01/19/18 Mirabegron [Myrbetriq] 25 mg PO DAILY 12/18/18 predniSONE [PredniSONE] 10 mg PO DAILY 12/18/18 Comments: Cristian Mcfarland D.O. [facility] #[id number]
[2018-12-18 16:42] VITALS: TEMP 97.1
--- NOTE | 2018-12-18 17:09 | RAD ---
EXAM DESCRIPTION: XR Chest,2 Views CLINICAL HISTORY: 73 years Female, CP COMPARISON: August 25, 2018. FINDINGS: Heart size appears within normal limits. There is atherosclerotic change in the thoracic aorta. The lungs appear slightly hyperinflated. There is prominence of interstitial markings with fibrotic stranding in the lung bases. This may be minimally increased since the previous study, and I cannot exclude mild interstitial edema. No alveolar pulmonary edema, pleural effusion, or pneumothorax is identified. There are scattered chronic bony changes in the dorsal spine. Possible carotid artery calcification in the right neck. IMPRESSION: Possible mild interstitial edema. Otherwise essentially stable chronic appearing changes. Electronically signed by: Tanner Hedrick MD 12/18/2018 5:08 PM CDT
--- NOTE | 2018-12-18 18:40 | CT ---
EXAM: CTA chest with contrast CLINICAL INDICATION: Chest pain, shortness of breath COMPARISON: 09/03/2018. TECHNIQUE: CTA of the chest was performed using contiguous axial 2.5mm postcontrast sections through the chest including IV contrast with 3-D reconstructions. This exam was performed according to our departmental dose-optimization program, which includes automated exposure control, adjustment of the mA and/or kV according to patient size and/or use of iterative reconstruction technique. FINDINGS: There is no evidence of pulmonary embolism. There are no findings to suggest aortic dissection. There are no enlarged mediastinal or hilar lymph nodes. The visualized portions of the upper abdominal structures are unremarkable. There is mild dependent subsegmental atelectasis in both lung bases. Moderate emphysematous changes are noted in the lungs as well as mild to moderate fibrotic changes. There is a large calcified granuloma in the left lower lobe. The lungs are otherwise clear. There is no pneumothorax. IMPRESSION: No evidence of pulmonary embolism. Electronically signed by: Yong Wang MD 12/18/2018 6:38 PM CDT
[2018-12-18] MEDS ORDERED: traMADol HCL 50 MG TAB PO ONE (18:45)
[2018-12-18 19:08] VITALS: BP 101/56; O2SAT 92
== END 2018-12-18 19:03 | disposition home or self-care (01) ==
LOC: ER 16:09
DX: R07.1 Chest pain on breathing (principal); J44.9 Chronic obstructive pulmonary disease, unspecified; Z79.82 Long term (current) use of aspirin; Z79.899 Other long term (current) drug therapy; Z88.0 Allergy status to penicillin; Z87.891 Personal history of nicotine dependence

== ENCOUNTER → 2018-12-20 | Outpatient (CLI) | payer MEDICARE, MEDICAID | LOC: GMAM 15:17 | PROVIDERS: ATTEND Family Medicine | DX: R07.1 Chest pain on breathing (principal) ==